=== PATIENT | male | born 1980 | race African-American/Black ===

== ENCOUNTER 2020-06-08 23:14 | Observation (INO) ==
[2020-06-09] MEDS ORDERED: PIPERACILLIN/TAZOBACTAM 3,375 MG in SODIUM CHLORIDE 0.9% 100 ML IV STA (00:58)
[2020-06-09] MEDS ORDERED: hydrALAZINE 20 MG/1 ML VIAL IV STA (00:58)
[2020-06-09 02:30] LABS: Basophils # 0.1 10*3/uL (0.0-0.2); Basophils % 0.5 % (0.0-0.8); Eosinophils # 0.2 10*3/uL (0.0-0.87); Eosinophils % 1.7 % (0.00-10.9); Hemoglobin 12.6 GM/DL (14.0-18.0); Immature Granulocytes % 0.3 %; Immature Granulocytes Absolute 0.04 #; Lymphocytes # 3.1 10*3/uL (1.4-4.0); Lymphocytes % 27.3 % (21.2-54.2); Mean Corpuscular HGB Conc 33.2 GM/DL (32-36); Mean Corpuscular Volume 97.7 FL (87-102); Mean Platelet Volume 9.3 FL (9.6-12.0); Monocytes % 6.6 % (1.7-12.7); Neutrophils % 63.6 % (38.7-73.9); Platelet Count 389 T/CUMM (130-400); Red Blood Count 3.89 MC/CUMM (3.8-5.5); Red Cell Distribution Width 13.5 % (9.3-17.3); White Blood Count 11.4 T/CUMM (4-12)
[2020-06-09 02:40] LABS: INR 0.9; PT Patient Result 10.1 SECS (9.8-11.9)
[2020-06-09 02:54] LABS: Albumin 3.9 G/DL (3.4-5.0); Bilirubin,Total 0.5 MG/DL (0.2-1.0); Calcium 8.8 MG/DL (8.5-10.1); Osmolality,Calculated 277.4 MOS/KG (273-304); Potassium 3.7 MMOL/L (3.5-5.1); Total Protein 7.8 G/DL (6.4-8.3)
[2020-06-09] MEDS ORDERED: GLUCAGON 1 MG VIAL IM PRN (03:23)
[2020-06-09] MEDS ORDERED: DEXTROSE 50% 25 GM/50 ML VIAL IV PRN (03:23)
[2020-06-09] MEDS ORDERED: hydrALAZINE 20 MG/1 ML VIAL IV PRN (03:28)
[2020-06-09] MEDS ORDERED: ONDANSETRON 4 MG/2 ML VIAL IV PRN (03:28)
[2020-06-09] MEDS ORDERED: NICOTINE 21 MG/24 HR PATCH TRANSDERM PRN (03:28)
[2020-06-09] MEDS ORDERED: MORPHINE 4 MG/1 ML VIAL IV PRN (03:28)
[2020-06-09] MEDS ORDERED: diphenhydrAMINE CAP 25 MG CAPSULE PO PRN (03:28)
[2020-06-09] MEDS ORDERED: ACETAMINOPHEN 325 MG TABLET PO PRN (03:28)
[2020-06-09] MEDS ORDERED: guaiFENesin/DM ER 600-30 MG TABLET PO PRN (03:28)
[2020-06-09] MEDS ORDERED: LABETALOL 20 MG/4 ML SYRINGE IV ONE (05:06)
[2020-06-09] MEDS ORDERED: VANCOMYCIN INJ 1,750 MG in SODIUM CHLORIDE 0.9% 500 ML IV SCH (08:00)
[2020-06-09] MEDS ORDERED: LIDOCAINE 1%/EPI INJ 20 ML VIAL MISC INJ ONE (08:25)
[2020-06-09 08:28] VITALS: BP 160/99
[2020-06-09] MEDS ORDERED: FUROSEMIDE 20 MG TABLET PO SCH (09:00)
[2020-06-09] MEDS ORDERED: PIPERACILLIN/TAZOBACTAM 3,375 MG in SODIUM CHLORIDE 0.9% 100 ML IV SCH (09:00)
[2020-06-09] MEDS ORDERED: CLINDAMYCIN INJ 600 MG in PREMIX 1 EACH IV ONE (09:16)
[2020-06-09] MEDS ORDERED: LOSARTAN/HCTZ 50-12.5 MG TABLET PO ONE (10:00)
[2020-06-09] MEDS: amLODIPine 10 MG TABLET PO SCH ×2 (10:06→11:18)
== END 2020-06-09 11:36 | disposition home or self-care (01) ==
LOC: N.ED 23:14 → N.EDINP 23:14 → N.TELEN 06-09 04:44
PROVIDERS: ADMIT Emergency Medicine; ATTEND Emergency Medicine

== ENCOUNTER 2022-08-20 16:38 | Inpatient (IN) ==
[2022-08-20] MEDS ORDERED: KETOROLAC 30 MG/1 ML VIAL IV STA (17:37)
[2022-08-20 18:04] LABS: Basophils % 0.6 % (0.0-0.8); Eosinophils # 0.1 10*3/uL (0.0-0.87); Eosinophils % 1.5 % (0.00-10.9); Hematocrit 36.8 VOL% (42.0-52.0); Hemoglobin 12.6 GM/DL (14.0-18.0); Immature Granulocytes % 0.7 %; Immature Granulocytes Absolute 0.05 #; Lymphocytes % 13.6 % (21.2-54.2); Mean Corpuscular HGB Conc 34.2 GM/DL (32-36); Mean Corpuscular Volume 97.1 FL (87-102); Mean Platelet Volume 9.2 FL (9.6-12.0); Monocytes # 0.8 10*3/uL (0.11-0.8); Monocytes % 11.3 % (1.7-12.7); Neutrophils % 72.3 % (38.7-73.9); Platelet Count 264 T/CUMM (130-400); Red Blood Count 3.79 MC/CUMM (3.8-5.5); Red Cell Distribution Width 13.4 % (9.3-17.3); White Blood Count 7.27 T/CUMM (4-12)
[2022-08-20 18:25] LABS: Calcium 9.1 MG/DL (8.5-10.1); Osmolality,Calculated 272.8 MOS/KG (273-304)
[2022-08-20] MEDS ORDERED: PIPERACILLIN/TAZOBACTAM 3,375 MG in SODIUM CHLORIDE 0.9% 100 ML IV STA (19:52)
[2022-08-20] MEDS ORDERED: hydrALAZINE 20 MG/1 ML VIAL IV STA (19:56)
[2022-08-20] MEDS ORDERED: hydrALAZINE 20 MG/1 ML VIAL IV PRN (20:19)
[2022-08-20] MEDS ORDERED: ACETAMINOPHEN 325 MG TABLET PO PRN (20:19)
[2022-08-20] MEDS ORDERED: ONDANSETRON 4 MG/2 ML VIAL IV PRN (20:19)
[2022-08-20] MEDS ORDERED: SIMETHICONE CHEW 125 MG TABLET PO PRN (20:19)
[2022-08-20] MEDS ORDERED: amLODIPine 5 MG TABLET PO STA (20:25)
[2022-08-20] MEDS ORDERED: POTASSIUM CHLORIDE 20 MEQ TABLET PO ONE (20:47)
[2022-08-20] MEDS ORDERED: LORazepam 1 MG TABLET PO PRN (21:04)
[2022-08-20] MEDS ORDERED: THIAMINE INJ 100 MG, FOLIC ACID INJ 1 MG, MULTIVITAMIN INJ 10 ML in SODIUM CHLORIDE 0.9... IV ONE (21:04)
[2022-08-20] MEDS: VANCOMYCIN INJ 1,500 MG in SODIUM CHLORIDE 0.9% 500 ML IV SCH (23:12)
[2022-08-21] MEDS: ENOXAPARIN 40 MG/0.4 ML SYRINGE SUBCUT SCH ×2 (00:21→21:42)
[2022-08-21] MEDS: DOCUSATE SODIUM 100 MG CAPSULE PO SCH ×3 (00:21→21:42)
[2022-08-21 02:14] LABS: Bilirubin,Urine Negative (Negative); Blood, Urine Negative (Negative); Glucose,Urine (UA) Negative (Negative); Ketones,Urine Negative (Negative); Nitrite,Urine Negative (Negative); Protein,Urine Negative (Negative); Urine Appearance Clear (Clear); Urine Color Yellow (Yellow); Urine Urobilinogen 0.2 eU/dL (<2.0); Urine pH 5.5 (4.5-8.0)
[2022-08-21 02:15] LABS: RBC,Urine 1 /HPF (0-4); Squamous Epithelial Cell,Urine Occasional /HPF (0-10)
[2022-08-21] MEDS: SODIUM CHLOR 0.9% KCL 20 MEQ 20 MEQ/1,000 ML BAG IV SCH ×2 (02:44→13:50)
[2022-08-21 03:12] LABS: Barbiturates Screen,Urine Negative (Negative); Benzodiazepines Screen,Urine Negative (Negative); Cannabinoid Screen,Urine Positive (Negative); Opiate Screen,Urine Negative (Negative); Phencyclidine Screen,Urine Negative (Negative)
[2022-08-21 06:03] LABS: Basophils % 0.6 % (0.0-0.8); Eosinophils # 0.2 10*3/uL (0.0-0.87); Eosinophils % 2.8 % (0.00-10.9); Hematocrit 38.3 VOL% (42.0-52.0); Hemoglobin 12.9 GM/DL (14.0-18.0); Immature Granulocytes % 0.6 %; Immature Granulocytes Absolute 0.04 #; Lymphocytes # 1.2 10*3/uL (1.4-4.0); Lymphocytes % 18.2 % (21.2-54.2); Mean Corpuscular HGB Conc 33.7 GM/DL (32-36); Mean Corpuscular Volume 99.5 FL (87-102); Mean Platelet Volume 9.3 FL (9.6-12.0); Monocytes # 0.8 10*3/uL (0.11-0.8); Monocytes % 12.4 % (1.7-12.7); Neutrophils % 65.4 % (38.7-73.9); Platelet Count 296 T/CUMM (130-400); Red Blood Count 3.85 MC/CUMM (3.8-5.5); Red Cell Distribution Width 13.4 % (9.3-17.3)
[2022-08-21 06:37] LABS: Calcium 9.2 MG/DL (8.5-10.1); Osmolality,Calculated 274.5 MOS/KG (273-304); Potassium 3.3 MMOL/L (3.5-5.1); Thyroid Stimulating Hormone 2.03 uIU/ml (0.358-3.74)
[2022-08-21] MEDS: amLODIPine 10 MG TABLET PO SCH (08:29)
[2022-08-21] MEDS: THIAMINE 100 MG TABLET PO SCH (08:29)
[2022-08-21] MEDS: PANTOPRAZOLE 40 MG TABLET PO SCH (08:29)
[2022-08-21] MEDS: FOLIC ACID 1 MG TABLET PO SCH (08:29)
[2022-08-21] MEDS: MULTIVITAMIN (BEROCCA) TABLET PO SCH (08:29)
[2022-08-21] MEDS: NICOTINE 21 MG/24 HR PATCH TRANSDERM SCH (09:11)
[2022-08-21] MEDS: VANCOMYCIN INJ 1,500 MG in SODIUM CHLORIDE 0.9% 500 ML IV SCH ×2 (10:05→21:50)
[2022-08-21] MEDS ORDERED: POTASSIUM CHLORIDE 20 MEQ TABLET PO ONE (11:00)
[2022-08-21] MEDS ORDERED: cefTRIAXone 1,000 MG in SODIUM CHLORIDE 0.9% 100 ML IV SCH (13:00)
[2022-08-22 04:06] LABS: Basophils % 0.8 % (0.0-0.8); Eosinophils # 0.2 10*3/uL (0.0-0.87); Eosinophils % 3.8 % (0.00-10.9); Hematocrit 34.3 VOL% (42.0-52.0); Immature Granulocytes Absolute 0.05 #; Lymphocytes % 19.8 % (21.2-54.2); Mean Corpuscular HGB Conc 32.1 GM/DL (32-36); Mean Corpuscular Volume 100.9 FL (87-102); Mean Platelet Volume 9.4 FL (9.6-12.0); Monocytes # 0.7 10*3/uL (0.11-0.8); Monocytes % 13.8 % (1.7-12.7); Neutrophils % 60.8 % (38.7-73.9); Platelet Count 266 T/CUMM (130-400); Red Cell Distribution Width 13.7 % (9.3-17.3)
[2022-08-22 04:27] LABS: Calcium 8.6 MG/DL (8.5-10.1); Osmolality,Calculated 281.1 MOS/KG (273-304); Potassium 3.6 MMOL/L (3.5-5.1)
[2022-08-22 07:19] VITALS: BP 153/99
[2022-08-22] MEDS: FOLIC ACID 1 MG TABLET PO SCH (08:28)
[2022-08-22] MEDS: PANTOPRAZOLE 40 MG TABLET PO SCH (08:28)
[2022-08-22] MEDS: amLODIPine 10 MG TABLET PO SCH (08:28)
[2022-08-22] MEDS: MULTIVITAMIN (BEROCCA) TABLET PO SCH (08:28)
[2022-08-22] MEDS: THIAMINE 100 MG TABLET PO SCH (08:28)
[2022-08-22] MEDS: DOCUSATE SODIUM 100 MG CAPSULE PO SCH (08:49)
[2022-08-22] MEDS: NICOTINE 21 MG/24 HR PATCH TRANSDERM SCH (08:49)
[2022-08-22] MEDS: VANCOMYCIN INJ 1,500 MG in SODIUM CHLORIDE 0.9% 500 ML IV SCH (10:41)
== END 2022-08-22 11:09 | disposition home or self-care (01) | DRG 383 ==
LOC: N.ED 16:38 → N.EDINP 20:19 → N.2E 21:33
PROVIDERS: ADMIT Internal Medicine; ATTEND Internal Medicine